=== PATIENT | female | born 1940 | race Caucasian/White ===

== ENCOUNTER 2020-10-18 13:12 | Day surgery (SDCO) | payer MEDICARE, OTHER ==
[~2020-10-18] VITALS: Ht 162.6 cm; Wt 72.3 kg
[~2020-10-18 13:12] MED LIST: ANTIVERT25 MG PO; ASPIRIN EC81 MG PO; ATENOLOL25 MG PO; CARDURA2 MG PO; CITRACAL + D E1 EACH PO; CLOBETASOL EMOL15 GM TOP; COZAAR100 MG PO; DOXEPIN HCL25 MG PO; ESTRADIOL BENZOA TOP; ESTRADIOL VG; GAS RELIEF80 MG PO; HCTZ25 MG PO; HYDRALAZINE25 MG PO; ISOSORBIDE MONO30 MG PO; LEVAQUIN500 MG PO; LIPITOR40 MG PO; LOVAZA1 GM PO; METFORMIN HCL500 MG PO; MULTIVITAMINS1 EAC1 PO; NASACORT16.9 ML; NORCO 5-325 TA1 EACH PO; OXYBUTYNIN CHLOR5 M1 PO; PHILLIPS' MILK311 MG PO; PRILOSEC20 MG PO; SENNA S TABLET1 EACH PO; SINEQUAN50 MG PO; TRIAMCINOLONE 015 GM TOP; VITAMIN D2000 UNIT PO; ZADITOR5 ML EYEBOTH; ZADITOR5 ML OU; ZOFRAN4 MG PO
[2020-10-18 13:52] LABS: BASOPHIL 0.5 % (0-2); EOSINOPHIL 0.6 % (0-7); HGB 12.9 g/dl (12.5-16.0); LYMPHOCYTE 15.8 % (15-48); MCH 31.7 pg (25.0-31.0); MCHC 34.9 g/dL (32.0-36.0); MCV 90.9 fL (78.0-100.0); MONOCYTE 7.1 % (0-12); MPV 9.2 fL (6.0-9.5); NEUTROPHIL 75.6 % (41-80); NRBC 0; PLT 246 K/uL (150-400); RBC 4.07 M/uL (4.20-5.40); RDW 12.8 % (11.5-14.0); WBC 9.5 K/uL (4.0-10.5)
[2020-10-18 14:22] LABS: ALBUMIN 3.9 g/dL (3.4-5.0); BILIRUBIN - TOTAL 0.5 mg/dL (0.2-1.0); BUN/CREAT RATIO (CALC) 38.9 RATIO; CREATININE 0.72 mg/dL (0.51-0.95); GLOBULIN (CALCULATION) 2.8 g/dL; MAGNESIUM 1.6 mg/dL (1.8-2.4); POTASSIUM 3.8 mmol/L (3.5-5.1); TOTAL PROTEIN 6.7 g/dL (6.4-8.2)
[2020-10-18 14:28] LABS: LACTIC ACID 3.6 mmol/L (0.4-1.9)
[2020-10-18 16:19] LABS: BILIRUBIN NEGATIVE (NEGATIVE); BLOOD NEGATIVE Ery/uL (NEGATIVE); CLARITY CLEAR (CLEAR); COLOR YELLOW (YELLOW); GLUCOSE (U) NORMAL (NORMAL); LEUKOCYTES NEGATIVE Leu/uL (NEGATIVE); NITRITE NEGATIVE (NEGATIVE); PROTEIN NEGATIVE (NEGATIVE); UROBILINOGEN 0.2 mg/dL (0.2-1.0)
[2020-10-19 06:30] LABS: BASOPHIL 0.8 % (0-2); EOSINOPHIL 2.1 % (0-7); HGB 13.6 g/dl (12.5-16.0); LYMPHOCYTE 29.4 % (15-48); MCHC 35.8 g/dL (32.0-36.0); MCV 89.4 fL (78.0-100.0); MONOCYTE 9.9 % (0-12); MPV 9.4 fL (6.0-9.5); NEUTROPHIL 57.5 % (41-80); NRBC 0; PLT 244 K/uL (150-400); RBC 4.25 M/uL (4.20-5.40); RDW 12.7 % (11.5-14.0); WBC 6.6 K/uL (4.0-10.5)
[2020-10-19 06:56] LABS: BUN/CREAT RATIO (CALC) 29.1 RATIO; CREATININE 0.55 mg/dL (0.51-0.95); POTASSIUM 4.1 mmol/L (3.5-5.1)
--- NOTE | 2020-10-19 14:20 | NUR ---
I have reviewed the assessment documented by the Student Nurse and agree with the findings.
--- NOTE | 2020-10-19 15:26 | NUR ---
MET WITH PT. AND SPOUSE. PT. 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 SHE IS NOT INTERESTED IN HH AT THIS TIME. SHE STATED THAT SHE WILL DISCUSS THIS WITH HER FAMILY DOCTOR. SHE STATED THAT HER IS RETIRED AND IS WITH HER AT ALL TIMES.
== END 2020-10-19 15:38 | disposition home or self-care (01) ==
LOC: FER 13:12 → FMS 18:08
PROVIDERS: Emergency Medicine; ADMIT Allergy & Immunology Allergy
DX: I95.1 Orthostatic hypotension (principal); I65.21 Occlusion and stenosis of right carotid artery; I10 Essential (primary) hypertension; E87.0 Hyperosmolality and hypernatremia; J98.11 Atelectasis; E11.9 Type 2 diabetes mellitus without complications; E78.5 Hyperlipidemia, unspecified; K21.9 Gastro-esophageal reflux disease without esophagitis; K59.09 Other constipation; F32.9 Major depressive disorder, single episode, unspecified; F41.9 Anxiety disorder, unspecified; Z88.8 Allergy status to other drugs, medicaments and biological substances; Z88.5 Allergy status to narcotic agent; R90.82 White matter disease, unspecified; Z87.891 Personal history of nicotine dependence; Z79.82 Long term (current) use of aspirin; Z79.899 Other long term (current) drug therapy; Z20.822 Contact with and (suspected) exposure to COVID-19
CPT/HCPCS: 36415; 70450; 70551; 71045; 80048; 80053; 80061; 81003; 83036; 83605; 83735; 84145; 84484; 85025; 85379; 87040; 93005; 93880; 94010; 94667; 97116; 97162; 97166; 97530-GP; 97535; G0378; J2405; J7030; U0002